=== PATIENT | male | born 1995 | race Caucasian/White ===

== ENCOUNTER 2019-01-15 22:34 | Emergency (ER) | payer OTHER, SELFPAY ==
[~2019-01-15] VITALS: Ht 175.3 cm; Wt 75.0 kg
[2019-01-16] MEDS ORDERED: SODIUM CHLORIDE 0.9% 1,000 ML IV ONE (03:05)
[2019-01-16] MEDS ORDERED: ONDANSETRON HCL 4MG/2ML INJ IV STA (03:05)
[2019-01-16] MEDS ORDERED: KETOROLAC 30MG/ML VIAL IV STA (03:05)
[2019-01-16 03:43] LABS: BASOPHILS % 0.6 % (0.0-2.0); EOSINOPHILS % 2.5 % (0.0-5.0); HEMATOCRIT. 46.2 % (42.0-52.0); LYMPHOCYTES % 17.9 % (20.0-50.0); MEAN CORPUSCULAR HEMOGLOBIN 29.7 pg (28.0-32.0); MEAN CORPUSCULAR VOLUME 85.5 fL (80.0-94.0); MEAN PLATELET VOLUME 8.3 fl (7.4-10.4); MONOCYTES % 7.9 % (2.0-8.0); NEUTROPHILS % 71.1 % (40.0-76.0); PLATELET 227 x1000/uL (130-400); RED CELL DISTRIBUTION WIDTH 13.1 % (11.6-14.6)
[2019-01-16 03:46] LABS: CHLORIDE 108 mEq/L (98-107)
[2019-01-16 06:04] VITALS: BP 127/62
== END 2019-01-16 06:05 | disposition home or self-care (01) ==
LOC: ER 22:34
DX: J18.9 Pneumonia, unspecified organism (principal)
CPT/HCPCS: 36415; 71045; 74176; 80053; 83605; 85025; 96374; 96375; 99284; J1885; J2405; J7030

== ENCOUNTER 2019-03-14 12:22 | Emergency (ER) | payer SELFPAY ==
[~2019-03-14] VITALS: Ht 175.3 cm; Wt 90.0 kg
[2019-03-14 12:38] VITALS: BP 126/76
[2019-03-14] MEDS ORDERED: BACITRACIN ZINC OINT UDPKT TOP ONE (15:30)
== END 2019-03-14 16:20 | disposition home or self-care (01) ==
LOC: ER 12:22
DX: S00.511A Abrasion of lip, initial encounter (principal); S60.416A Abrasion of right little finger, initial encounter; Y04.0XXA Assault by unarmed brawl or fight, initial encounter; Y93.89 Activity, other specified; Y92.89 Other specified places as the place of occurrence of the external cause
CPT/HCPCS: 99282